=== PATIENT | male | born 1970 | race Caucasian/White ===

== ENCOUNTER → 2017-06-17 | Day surgery (SDC) | payer BC ==
[2017-06-15 09:36] VITALS: BMI 26.2
[~2017-06-17] MED LIST: LACTATED RINGERS 1,000 ML IV SCH; LIDOCAINE 1% 20 ML VIAL (10MG/ML) FOR IV START INTRADERMA ONE; PROPOFOL 10 MG/ML 20 ML VIAL IV ONE
[2017-06-17 09:55] VITALS: TEMP 98.6
--- NOTE | 2017-06-17 11:10 | P.GSHP ---
History of Present Illness H&P Date: 06/17/17 Chief Complaint: Screening colonoscopy, family history of colon cancer This is a 46-year-old male referred from Dr. Dory warner. Patient presents today for screening colonoscopy. He is a strong family history of colon cancer with his father having colon cancer. Past Medical History Past Medical History: No Reported History Additional Past Medical History / Comment(s): UMBILICAL HERNIA. History of Any Multi-Drug Resistant Organisms: None Reported Past Surgical History: Hernia Repair Additional Past Surgical History / Comment(s): SURGERY ON JAW BONE W/SEDATION AT DENTAL OFFICE. Past Anesthesia/Blood Transfusion Reactions: No Reported Reaction Smoking Status: Current every day smoker - Past Family History Father Family Medical History: Cancer Additional Family Medical History / Comment(s): . Medications and Allergies Home Medications Medication Instructions Recorded Confirmed Type Multivitamins, Thera [Multivitamin] 1 tab PO DAILY 04/23/15 06/15/17 History Cholecalciferol [Vitamin D3] 1,000 unit PO DAILY 06/15/17 06/17/17 History Allergies Allergy/AdvReac Type Severity Reaction Status Date / Time No Known Allergies Allergy Verified 06/15/17 09:30 Surgical - Exam Vital Signs Temp Pulse Resp BP Pulse Ox 98.6 F 76 16 168/70 98 06/17/17 09:43 06/17/17 09:43 06/17/17 09:43 06/17/17 09:43 06/17/17 09:43 - General well developed, no distress - Eyes PERRL - ENT normal pinna - Neck no masses - Respiratory normal expansion - Cardiovascular Rhythm: regular - Abdomen Abdomen: soft, non tender Assessment and Plan Assessment: We'll perform screening colonoscopy.
--- NOTE | 2017-06-17 11:21 | P.OP ---
Date of Procedure: 06/17/17 Preoperative Diagnosis: Screening colonoscopy Family history colonic Cancer Postoperative Diagnosis: Normal colon Procedure(s) Performed: Colonoscopy Anesthesia: MAC Surgeon: Paul Child Pathology: none sent Condition: stable Disposition: PACU Description of Procedure: PROCEDURE: The patient was placed on the endoscopy table in the lateral position. Digital rectal examination was performed which revealed no abnormalities. The prostate was symmetrical without nodules. Flexible colonoscope was then placed in the patient's anus and passed throughout the entire colon. The ileocecal valve was visualized. The cecum, ascending, transverse, descending and sigmoid colon were normal. The rectum was normal as well. There were no masses, polyps or diverticula noted in the entire colon. SUMMARY OF FINDINGS: Normal colonoscopy.
[2017-06-17 11:51] VITALS: RESP 18
[2017-06-17 11:54] VITALS: BP 150/76; PULSE 68
== END | disposition home or self-care (01) ==
LOC: ORWHC2ENDO 09:25
PROVIDERS: ATTEND Surgery
DX: Z12.11 Encounter for screening for malignant neoplasm of colon (principal); Z80.0 Family history of malignant neoplasm of digestive organs; F17.200 Nicotine dependence, unspecified, uncomplicated
CPT/HCPCS: J2704; G0105